=== PATIENT | male | born 1950 | race Caucasian/White ===

== ENCOUNTER 2022-01-02 13:25 | Emergency (ER) | payer MEDICARE ==
[2022-01-02 14:18] VITALS: PULSE 81
[2022-01-02 15:07] LABS: ESTIMATED GFR > 60 (>60)
[2022-01-02] MEDS ORDERED: Furosemide 40 MG/4 ML VIAL IVPUSH ONE (15:40)
[2022-01-02] MEDS ORDERED: Nitroglycerin 0.4 MG Tab.SL SL ONE (15:41)
[2022-01-02] MEDS ORDERED: Sodium Chloride 0.9% 10 ML Syringe FLUSH PRN (15:41)
[2022-01-02 16:30] VITALS: BP 152/88
== END 2022-01-02 17:38 | disposition home or self-care (01) ==
LOC: JP.ED 13:25
DX: I50.9 Heart failure, unspecified (principal); I48.91 Unspecified atrial fibrillation; E78.00 Pure hypercholesterolemia, unspecified; E03.9 Hypothyroidism, unspecified; G35 Multiple sclerosis; Z95.0 Presence of cardiac pacemaker; Z79.899 Other long term (current) drug therapy; Z79.01 Long term (current) use of anticoagulants; Z72.0 Tobacco use
CPT/HCPCS: 36415; 71046; 71046-26; 80053; 83880; 84484; 85025; 96374; 99284; 99285-25; A9270-GY; J1940; J3490

== ENCOUNTER 2022-01-07 07:35 | Emergency (ER) | payer MEDICARE ==
[2022-01-07] MEDS ORDERED: Sodium Chloride 0.9% 10 ML Syringe FLUSH PRN (08:25)
[2022-01-07] MEDS ORDERED: Nitroglycerin 0.4 MG Tab.SL SL ONE (08:28)
[2022-01-07 09:14] LABS: ESTIMATED GFR 92 mL/min (>60); TROPONIN I HIGH SENSITIVITY 29.2 pg/mL (<=60.3)
[2022-01-07] MEDS ORDERED: Iopamidol 612 MG/ML 100 ML Bottle IV STA (09:31)
[2022-01-07] MEDS ORDERED: Sodium Chloride 0.9% 50 ML IV STA (09:31)
[2022-01-07] MEDS ORDERED: Furosemide 40 MG/4 ML VIAL IVPUSH ONE (11:36)
[2022-01-07 12:53] VITALS: BP 141/75; PULSE 73
== END 2022-01-07 13:32 | disposition home or self-care (01) ==
LOC: JP.ED 07:35
DX: I50.9 Heart failure, unspecified (principal); E78.00 Pure hypercholesterolemia, unspecified; E03.9 Hypothyroidism, unspecified; F17.200 Nicotine dependence, unspecified, uncomplicated; Z79.899 Other long term (current) drug therapy
CPT/HCPCS: 36415; 71260; 80053; 83605; 83880; 84484; 85025; 93005; 96374; 99285; J1940; J3490; Q9967; 99282